=== PATIENT | male | born 1980 | race Caucasian/White ===

== ENCOUNTER 2024-12-04 14:05 | Emergency (ER) | payer BC ==
[~2024-12-04] VITALS: Ht 193 cm; Wt 109.7 kg
[2024-12-04 14:37] LABS: BASOPHILS # (AUTO) 0.1 X10'3 (0-0.2); BASOPHILS % (AUTO) 0.5 % (0-1); EOSINOPHILS # (AUTO) 0.1 X10'3 (0-0.9); EOSINOPHILS % (AUTO) 0.7 % (0-6); HEMATOCRIT 43.6 % (42.0-52.0); HEMOGLOBIN 14.8 g/dl (14.0-17.9); LYMPHOCYTES # (AUTO) 1.1 X10'3 (1.1-4.8); LYMPHOCYTES % (AUTO) 9.2 % (21-51); MEAN CORPUSCULAR HEMOGLOBIN 32.5 PG (27.0-31.0); MEAN CORPUSCULAR HGB CONC 33.8 g/dL (33.0-36.5); MEAN CORPUSCULAR VOLUME 96.2 FL (78-98); MEAN PLATELET VOLUME 7.1 FL (7.4-10.4); MONOCYTES # (AUTO) 1.2 X10'3 (0-0.9); NEUTROPHILS # (AUTO) 9.5 X10'3 (1.8-7.7); NEUTROPHILS % (AUTO) 79.6 % (42-75); PLATELET COUNT 322 X10'3 (140-440); RED BLOOD COUNT 4.54 X10'6 (4.70-6.10); RED CELL DISTRIBUTION WIDTH 12.8 % (11.5-14.5)
[2024-12-04 14:53] LABS: ALANINE AMINOTRANSFERASE 25 U/L (12-78); ALBUMIN/GLOBULIN RATIO 0.9 (1.1-1.5); ALKALINE PHOSPHATASE 69 IU/L (46-116); ANION GAP 8 (8-16); ASPARTATE AMINO TRANSFERASE 16 U/L (10-37); BILIRUBIN,TOTAL 2.2 MG/DL (0.1-1.0); BLOOD UREA NITROGEN 9 MG/DL (7-18); BUN/CREATININE RATIO 10.8 (10.0-20.0); CALCIUM 8.7 MG/DL (8.5-10.1); CHLORIDE 105 MMOL/L (99-107); CREATININE 0.83 MG/DL (0.60-1.10); GLUCOSE 128 MG/DL (70-104); LIPASE 31 U/L (16-77); POTASSIUM 4.2 MMOL/L (3.5-5.1); SODIUM 141 MMOL/L (135-145); TOTAL CARBON DIOXIDE 27.9 MMOL/L (24-32); TOTAL PROTEIN 8.4 G/DL (6.4-8.2); eCRCL 142 ML/MIN; eGFR > 90 ML/MIN
[2024-12-04 15:44] LABS: BILIRUBIN,URINE NEGATIVE (Neg); CLARITY,URINE CLEAR (Clear); COLOR,URINE STRAW (Yellow); GLUCOSE, URINE NEGATIVE (Neg); KETONES,URINE NEGATIVE (Neg); LEUKOCYTE ESTERASE ,URINE NEGATIVE (Neg); NITRITES, URINE NEGATIVE (Neg); OCCULT BLOOD,URINE NEGATIVE (Neg); PROTEIN,URINE NEGATIVE (Neg); UROBILINOGEN,URINE 0.2 E.U/dL (0.2-1.0)
[2024-12-04 15:47] LABS: UA COLLECTION TYPE NON-SPECIFIED
[2024-12-04] MEDS ORDERED: iohexol 300mg/ml 100ml inj. ONE (16:45)
[2024-12-04] MEDS: piperacillin/tazo 3.375gm/50ml 50 ML IV ONE (17:01)
[2024-12-04] MEDS: normal saline 1000ml 1,000 ML IV SCH (17:03)
[2024-12-04] MEDS ORDERED: CEFU500T66 PO (17:46)
[2024-12-04] MEDS ORDERED: METR-159 PO (17:46)
[2024-12-04 20:10] VITALS: BP 141/82; PULSE 74; RESP 16; TEMP 98.4; O2SAT 97
== END 2024-12-04 20:14 | disposition home or self-care (01) ==
LOC: ER 14:05
DX: K57.32 Diverticulitis of large intestine without perforation or abscess without bleeding (principal); Z88.5 Allergy status to narcotic agent
CPT/HCPCS: 36415; 74177; 80053; 81003; 83690; 85025; 96365; 96366; 99285; J2543; J7030; Q9967

== ENCOUNTER 2024-12-11 18:59 | Emergency (ER) | payer BC ==
[~2024-12-11] VITALS: Ht 190.5 cm; Wt 108.2 kg
[~2024-12-11 18:59] MED LIST: CEFU500T66 PO; METR-159 PO
[2024-12-11 19:03] VITALS: BP 166/98; PULSE 89; RESP 15; TEMP 96.8; O2SAT 97
[2024-12-11] MEDS: hydrocortisone 1% cream 28gm TP ONE (19:55)
== END 2024-12-11 20:16 | disposition home or self-care (01) ==
LOC: ER 19:00
DX: L50.0 Allergic urticaria (principal); Z88.5 Allergy status to narcotic agent
CPT/HCPCS: 99282

== ENCOUNTER 2025-02-28 14:58 | Outpatient (CLI) | payer BC ==
[~2025-02-28 14:58] MED LIST changes: -METR-159 PO
[2025-02-28 15:30] LABS: BASOPHILS % (AUTO) 0.3 % (0-1); EOSINOPHILS # (AUTO) 0.1 X10'3 (0-0.9); EOSINOPHILS % (AUTO) 0.5 % (0-6); HEMATOCRIT 48.3 % (42.0-52.0); HEMOGLOBIN 16.6 g/dl (14.0-17.9); LYMPHOCYTES # (AUTO) 0.9 X10'3 (1.1-4.8); LYMPHOCYTES % (AUTO) 9.5 % (21-51); MEAN CORPUSCULAR HEMOGLOBIN 32.9 PG (27.0-31.0); MEAN CORPUSCULAR HGB CONC 34.4 g/dL (33.0-36.5); MEAN CORPUSCULAR VOLUME 95.6 FL (78-98); MEAN PLATELET VOLUME 7.2 FL (7.4-10.4); NEUTROPHILS # (AUTO) 7.8 X10'3 (1.8-7.7); NEUTROPHILS % (AUTO) 79.7 % (42-75); PLATELET COUNT 255 X10'3 (140-440); RED BLOOD COUNT 5.05 X10'6 (4.70-6.10); RED CELL DISTRIBUTION WIDTH 13.2 % (11.5-14.5); WHITE BLOOD COUNT 9.8 X10'3 (4.5-11.0)
[2025-02-28 15:53] LABS: ALANINE AMINOTRANSFERASE 29 U/L (12-78); ALBUMIN 4.6 G/DL (3.4-5.0); ALBUMIN/GLOBULIN RATIO 1.2 (1.1-1.5); ALKALINE PHOSPHATASE 76 IU/L (46-116); ANION GAP 9 (8-16); ASPARTATE AMINO TRANSFERASE 21 U/L (10-37); BILIRUBIN,TOTAL 3.5 MG/DL (0.1-1.0); BLOOD UREA NITROGEN 8 MG/DL (7-18); BUN/CREATININE RATIO 8.2 (10.0-20.0); CHLORIDE 104 MMOL/L (99-107); CHOL/HDL RATIO 2.3 (0.00-4.99); CHOLESTEROL 133 MG/DL (0-200); CREATININE 0.98 MG/DL (0.60-1.10); FREE T4 (FREE THYROXINE) 0.82 NG/DL (0.73-1.40); GLUCOSE 114 MG/DL (70-104); HDL CHOLESTEROL 58 MG/DL (35-60); LDL CHOLESTEROL 66 MG/DL (50-100); POTASSIUM 3.7 MMOL/L (3.5-5.1); SODIUM 142 MMOL/L (135-145); THYROID STIMULATING HORMONE 1.32 ulU/ml (0.34-4.50); TOTAL CARBON DIOXIDE 28.9 MMOL/L (24-32); TOTAL PROTEIN 8.5 G/DL (6.4-8.2); TRIGLYCERIDES 59 MG/DL (20-135); eGFR 84 ML/MIN
[2025-02-28 15:54] LABS: HEMOGLOBIN A1C 5.2 % (4.5-6.2)
== END 2025-02-28 23:59 | disposition home or self-care (01) ==
LOC: RAD 14:58
PROVIDERS: ATTEND Hospitalist
DX: I10 Essential (primary) hypertension (principal)
CPT/HCPCS: 36415; 80053; 80061; 83036; 84402; 84403; 84439; 84443; 85025

== ENCOUNTER 2025-06-16 08:08 | Outpatient (CLI) | payer BC ==
--- NOTE | 2025-06-16 09:26 | RADIOLOGY REPORT ---
INDICATION: OTHER DISORDERS OF BILIRUBIN METABOLISM TECHNIQUE: Multiple real-time sonographic images of the abdomen were obtained. COMPARISON: CT CT ABDOMEN PELVIS W/ IV CONTRAST on DOS: 12/04/24 FINDINGS: The liver is homogenous in echogenicity. No intrahepatic biliary ductal dilatation is noted. No hepatic masses were seen. The gallbladder wall measures 0.2 cm and is normal in size. Gallstones are. The common duct measures 0.2 cm and is normal in size. No pericholecystic fluid is noted. The right kidney measures 11cm and is normal in size. The right renal echogenicity, contour and cortical thickness are within normal limits. No hydronephrosis or large masses are seen. The left kidney measures 12cm and is normal in size. The left renal echogenicity, contour, and cortical thickness are within normal limits. No hydronephrosis or large masses are seen. The spleen measures 13cm, within normal limits. The echogenicity is within normal limits. The pancreas is not well visualized. The visualized portions of the IVC and aorta are grossly unremarkable. IMPRESSION: Gallstones.
== END 2025-06-16 23:59 | disposition home or self-care (01) ==
LOC: RAD 08:08
PROVIDERS: ATTEND Internal Medicine
DX: K80.20 Calculus of gallbladder without cholecystitis without obstruction (principal); E80.6 Other disorders of bilirubin metabolism
CPT/HCPCS: 76700

== ENCOUNTER 2025-06-21 15:53 | Outpatient (CLI) | payer BC ==
[2025-06-21 16:14] LABS: MEAN PLATELET VOLUME 6.9 FL (7.4-10.4); RED CELL DISTRIBUTION WIDTH 13.0 % (11.5-14.5)
[2025-06-21 16:34] LABS: CREATININE 1.01 MG/DL (0.60-1.10); TOTAL CARBON DIOXIDE 29.3 MMOL/L (24-32); eGFR 81 ML/MIN
== END 2025-06-21 23:59 | disposition home or self-care (01) ==
LOC: RAD 15:53
PROVIDERS: ATTEND Internal Medicine
DX: E80.6 Other disorders of bilirubin metabolism (principal)
CPT/HCPCS: 36415; 80053; 85025